=== PATIENT | female | born 1965 | race Caucasian/White ===

== ENCOUNTER 2022-05-13 01:10 | Day surgery (SDC) | payer OTHER, SELFPAY ==
[2022-04-19 12:14] VITALS: BMI 33.3
--- NOTE | 2022-04-19 12:19 | PC.NURSE ---
Addendum entered by Soheila Caba RN 05/06/22 12:22: PT TO ARRIVE AT 0830 ON 05/13/22 FOR SURGERY AT 0930. Original Note: Report to the Outpatient Waiting Room, entrance under the green pavilion located off [facility], at time ___929____ on date __04/29/22 . Planned Procedure Time: ___1030 . Time changes happen often and if your time is changed the preop area will call you the afternoon before. - You and your visitor will be asked to self-screen and do not enter if you have any COVID symptoms. - We encourage only one visitor and NO visitors under age 16 are allowed at this time. Your visitor will receive communication by the phone number that is given day of service. - The patient visitor is requested to social distance or may leave the building when not with patient due to restrictions. - A mask is required within the hospital. -MAY HAVE LIGHT BREAKFAST Take the following medications with a SIP of water the morning of surgery: ____REG HOME MEDS Medications to discontinue per physician Date to take last dose Please no make-up, nail yakut, hairspray, perfume, deodorant, or body powder the day of surgery. No jewelry (including any body piercings) or valuables the day of surgery, leave them at home. Please take a shower or bath the night before, or the morning of, surgery with an antibacterial soap. Wear comfortable, loose fitting clothing. Children are encouraged to wear pajamas. - Jewelry must be removed prior to entering the operating room. Rings and piercings that are not removed may be cut off. - The hospital will not accept responsibility for valuables. - Please leave all valuables, including medications, at home the day of surgery. If you are going home after surgery you may drive yourself, but a line haul driver is encouraged - NO public transportation without another adult. - We recommend that an adult stay with you for 24 hours following discharge. - We also recommend that you do not drive, make important decision, drink alcoholic beverages, or take any drugs that were not prescribed by your health care provider for at least 24 hours after your discharge time. For Pediatric surgeries, we recommend two adults accompany the child home. Follow any additional instructions given to you from your surgeon. If you or anyone in your household have experienced Covid symptoms in the past week, please notify your surgeon or the nurse liaison at the phone number below for possible testing. Telephone instructions given to ____PT and asked if any additional questions and then verbalized understanding. Patient advised to call surgeon office or pre surgery nurse liaison [phone] if any additional questions.
--- NOTE | 2022-05-06 12:22 | PC.NURSE ---
Pt states no changes in health history or medications since initial interview. New pre-op instructions reviewed with pt. Pt denies further questions at this time.
[2022-05-13] VITALS (8 sets, daily range): BP systolic 100–119; BP diastolic 68–77; PULSE 55–69; RESP 16; TEMP 37.1; O2SAT 95–100
--- NOTE | 2022-05-13 07:16 | WPDHPUPDATE1 ---
History and Physical Update Update Date/Time: 05/13/22 07:16 History and Physical has been reviewed, including an updated exam of the patient. There are NO changes in the patient's condition. Risks, benefits, and alternatives have been discussed and questions answered. Patient agrees to proceed with procedure.
[2022-05-13] MEDS: LIDO 2%/EPINEPHRINE 1:100,000 50 ML VIAL 10 ML INFILTRATE (07:29)
[2022-05-13] MEDS: BACITRACIN OINTMENT 15 GM TUBE 1 APPLIC TOPICAL (08:19)
--- NOTE | 2022-05-13 08:56 | W.PM.PROC2 ---
Procedure Note - Detailed Date of Procedure 05/13/22 Pre-op Diagnosis Basal Ca Carcinoma Right Lower Anterior Pretibia Post-op Diagnosis Same Procedure Performed 1.2 cm excision of basal cell carcinoma of the right lower anterior pretibia with frozen section and intermediate repair 3 cm Surgeon Bautista Mathew MD Anesthesia Local Indications Biopsy Description of Procedure The patient's right lower anterior leg site was marked in the holding area with her consent. She was taken to the operating room where she was placed supine on the operating table. The right lower extremity was prepped and draped in usual fashion. A marking was made for the incision and axis and locally infiltrated with 2% lidocaine with epinephrine. The incision was made as marked extending into the subcutaneous tissue. The specimen was taken off as a circular ellipse the most superior aspect was marked for 12 o'clock and the lesion was sent to pathology for frozen section. The pathologist reported the margins were free. The wound was closed with undermining approximately 1 cm on all sides and placement intradermal 3-0 Vicryl sutures to approximate the wound margins. The skin was closed with a running 5 0 nylon and a small standing cone was removed from 1 and . A small bandage with Coban wrap was applied. The patient is discharged with instructions in wound care and follow-up. A prescription for cephalexin 500 mg p.o. t.i.d. 15. was ordered and hydrocodone 5/325. Tourniquet Time 0 Drains No Packing No Pathology Yes Complications No immediate complications Condition Stable Disposition Same day
== END 2022-05-13 09:00 | disposition home or self-care (01) ==
PROVIDERS: PCP Internal Medicine; Visit Provider Plastic Surgery
PROC: (CPT 11602; principal; 2022-05-13 07:30)
DX: C44.712 Basal cell carcinoma of skin of right lower limb, including hip (principal)
CPT/HCPCS: 11602; 12032; 88305; 88331; A9270

== ENCOUNTER 2023-03-25 01:26 | Day surgery (SDC) | payer OTHER, SELFPAY ==
[2023-03-15 13:36] VITALS: BMI 35.0
[2023-03-25 12:25] VITALS: BP 115/71; PULSE 61; RESP 18; TEMP 36.3; O2SAT 100; BMI 35.0
[2023-03-25] MEDS: LACTATED RINGERS 1,000 ML 150 ML IV CONT (12:46)
--- NOTE | 2023-03-25 12:55 | PM.HPGS ---
History of Present Illness History of Present Illness Consent: Risks, benefits, and alternatives have been discussed and questions answered. Patient agrees to proceed with procedure. Chief complaint: family hx of colon polyps Narrative: Karla Stock is a 57 year old female Referred for colon cancer screening. She has a family history of colon cancer. Review of Systems Review of Systems: All systems reviewed & are unremarkable except as noted in HPI and below PMFSH Past Medical History Medical History Depression History of vaginal delivery x 1 HPV (human papilloma virus) infection Hypertension Memory loss Normal colonoscopy Prediabetes Surgical History Surgical History History of gastric surgery Gastric sleeve History of tonsillectomy and adenoidectomy [place] teeth removed Family History Family History Mother Hypertension Father Hypertension High cholesterol Colon cancer at age 82 (11/05/22) from colon cancer Patient's father is Grandparent Breast cancer Cervical cancer Other Alzheimer disease Social History Social History Smoking packs per day: 1 Smoking cigarettes per day: 20.0 Years smoked: 30 Smoking pack-years: 30.00 Smoking status: Former smoker Tobacco type: cigarettes Second hand tobacco smoke exposure: No Smoking end date: 06/27/15 Alcohol intake: current Drinks per week: 2 Substance use: never Substance use type: does not use Lack of Transportation: No Lack of Food: Never True Current Housing: I Have Housing Concerned About Future Housing: No Difficulty Paying Gas/Electric Bills: No Difficulty Paying for Meds: No Currently Unemployed: No Education: Bachelor's Degree Difficulty w/ Childcare or Family Care: No Living arrangements: with family Occupation/Education: retired Gender identity (if verbalized by the patient): Female Sexual Orientation (if Verbalized by the Patient): Straight or Heterosexual Spiritual care concerns: No Meds Home Medications and Allergies Home Medications Medication Instructions Recorded Confirmed Type biotin 1 mg capsule 1 mg PO DAILY 08/06/19 03/25/23 History calcium carbonate 600 mg calcium 600 mg PO DAILY 08/06/19 03/25/23 History (1,500 mg) tablet (Calcium) cholecalciferol (vitamin D3) 100 50 mcg PO DAILY 08/06/19 03/25/23 History mcg (4,000 unit) capsule multivitamin 1 tablet PO DAILY 08/06/19 03/25/23 History omega-3 fatty acids 1,000 mg 1,000 mg PO DAILY 08/06/19 03/25/23 History capsule (Fish Oil Concentrate) BM-eaqbmjxslzi-qkxtzd ox-Zn ER 500 500 tablet PO DAILY 05/13/22 03/25/23 History mcg-750 mg-1.5 mg-25 mg tablet,ER lisinopril 20 mg tablet 20 mg PO DAILY #90 tabs 08/26/22 03/25/23 Rx Allergies Allergy/AdvReac Type Severity Reaction Status Date / Time No Known Allergies Allergy Verified 03/25/23 12:33 Vital Signs Vital Signs - 24 hr 03/25/23 12:25 Temperature 36.3 C L Pulse Rate 61 Respiratory Rate 18 Blood Pressure 115/71 Pulse Oximetry 100 Oxygen Delivery Room Air Exam Resp: Auscultation: clear to auscultation bilaterally Cardio: Rate: regular rate Rhythm: regular rhythm GI: GI Palp: Yes Soft to palpation and No Tenderness to palpation present (GI) Assessment and Plan Assessment and plan (1) Colon cancer screening: Code(s): Z12.11 - Encounter for screening for malignant neoplasm of colon Status: Acute Assessment and Plan: Colonoscopy with possible biopsy or polypectomy or cautery or injection of substances.
--- NOTE | 2023-03-25 12:57 | WPDANESEPPF ---
Anes - Initial Pre Proc Eval Procedure: Operation Date: 03/25/23 13:45 Proposed Procedures p Colonoscopy - Donal Delcid MD Date/Time: 03/25/23 12:57 Surgeon: Donal Delcid MD Pre Op Diagnosis: family hx of colon polyps Patient Data Age: 57 Gender: F Height: 1.65 m Weight: 95.6 kg Last Vital Signs Temp 97.4 F L 03/25/23 12:25 Pulse 61 03/25/23 12:25 Resp 18 03/25/23 12:25 BP 115/71 03/25/23 12:25 Pulse Ox 100 03/25/23 12:25 O2 Del Method Room Air 03/25/23 12:25 Allergies Allergy/AdvReac Type Severity Reaction Status Date / Time No Known Allergies Allergy Verified 03/25/23 12:33 Home Medications Medication Instructions Recorded Confirmed Type biotin 1 mg capsule 1 mg PO DAILY 08/06/19 03/25/23 History calcium carbonate 600 mg calcium 600 mg PO DAILY 08/06/19 03/25/23 History (1,500 mg) tablet (Calcium) cholecalciferol (vitamin D3) 100 50 mcg PO DAILY 08/06/19 03/25/23 History mcg (4,000 unit) capsule multivitamin 1 tablet PO DAILY 08/06/19 03/25/23 History omega-3 fatty acids 1,000 mg 1,000 mg PO DAILY 08/06/19 03/25/23 History capsule (Fish Oil Concentrate) LV-kdfnsfoffrg-zptgre ox-Zn ER 500 500 tablet PO DAILY 05/13/22 03/25/23 History mcg-750 mg-1.5 mg-25 mg tablet,ER lisinopril 20 mg tablet 20 mg PO DAILY #90 tabs 08/26/22 03/25/23 Rx Patient hx anesthesia problems: none Family hx anesthesia problems: none Results Review: All pre-operative results and documents have been reviewed as part of the pre-operative evaluation. [facility] Past Medical History Medical History Depression History of vaginal delivery x 1 HPV (human papilloma virus) infection Hypertension Memory loss Normal colonoscopy Prediabetes Surgical History Surgical History History of gastric surgery Gastric sleeve History of tonsillectomy and adenoidectomy [place] teeth removed Family History Family History Mother Hypertension Father Hypertension High cholesterol Colon cancer at age 82 (11/05/22) from colon cancer Patient's father is Grandparent Breast cancer Cervical cancer Other Alzheimer disease Social History Social History Smoking packs per day: 1 Smoking cigarettes per day: 20.0 Years smoked: 30 Smoking pack-years: 30.00 Smoking status: Former smoker Tobacco type: cigarettes Second hand tobacco smoke exposure: No Smoking end date: 06/27/15 Alcohol intake: current Drinks per week: 2 Substance use: never Substance use type: does not use Lack of Transportation: No Lack of Food: Never True Current Housing: I Have Housing Concerned About Future Housing: No Difficulty Paying Gas/Electric Bills: No Difficulty Paying for Meds: No Currently Unemployed: No Education: Bachelor's Degree Difficulty w/ Childcare or Family Care: No Living arrangements: with family Occupation/Education: retired Gender identity (if verbalized by the patient): Female Sexual Orientation (if Verbalized by the Patient): Straight or Heterosexual Spiritual care concerns: No Anes - Eval Final PreProcedure Day of Procedure 03/25/23 12:57 Patient weight: obese Heart: regular rate and rhythm Lungs: clear to auscultation Airway: Mallampati scale class II Neurological: alert and oriented Last oral intake: >/= 8 hours ASA classification: II Emergent: no Anesthetic plan: proceed Anesthesia type and monitoring: general GIVS and standard monitoring Results Review: All pre-operative results and documents have been reviewed as part of the pre-operative evaluation. Informed Consent: The patient's anesthetic plan and its attendant risks and benefits were discussed with the patient/family/POABronwyn Garrido
[2023-03-25 13:36] VITALS: BP 101/57; PULSE 59; RESP 17; O2SAT 100
[2023-03-25 13:46] VITALS: BP 106/74; PULSE 59; RESP 17; O2SAT 100
[2023-03-25 13:56] VITALS: BP 122/73; PULSE 60; RESP 20; O2SAT 100
== END 2023-03-25 14:03 | disposition home or self-care (01) ==
PROVIDERS: PCP Internal Medicine; Visit Provider Internal Medicine Gastroenterology
PROC: 0DJD8ZZ Inspection of Lower Intestinal Tract, Via Natural or Artificial Opening Endoscopic (ICD-10-PCS; CPT 45378; principal; 2023-03-25 13:45)
DX: Z12.11 Encounter for screening for malignant neoplasm of colon (principal); Z80.0 Family history of malignant neoplasm of digestive organs; I10 Essential (primary) hypertension; Z87.891 Personal history of nicotine dependence; E66.9 Obesity, unspecified; Z68.35 Body mass index [BMI] 35.0-35.9, adult
CPT/HCPCS: 45378; J2704; J7120

== ENCOUNTER 2023-05-15 14:24 | Emergency (ER) | payer OTHER, SELFPAY ==
--- NOTE | ~2023-05-15 | XR_ITS ---
EXAMINATION: XR chest 2V Exam Date/Time: 05/15/2023 14:50 CONTRACT MANAGEMENT SPECIALIST HISTORY: CHEST DISCOMFORT. Comparison: 09/01/2015. RESULT: Lines, tubes, and devices: None. Lungs and pleura: Clear. Cardiomediastinal silhouette: Stable. Other: No acute osseous or upper abdominal finding. IMPRESSION: No acute cardiopulmonary process. Reviewed, dictated and finalized at location K. RACT MANAGEMENT SPECIALIST
[2023-05-15 14:30] VITALS: BP 115/64; PULSE 83; RESP 20; TEMP 36.8; O2SAT 98
--- NOTE | 2023-05-15 14:32 | ED.CHESTPAIN ---
HPI - Chest Pain General Chief Complaint: Chest Pain Stated Complaint: chest discomfort Time Seen by Provider: 05/15/23 14:39 Mode of arrival: ambulatory Limitations: no limitations History of Present Illness HPI narrative: 57-year-old female presents with concern for chest pain for 1 month. She reports that is worsened over the last couple of days. She reports it is across the front of her chest on the left and the right. She reports she has worsening pain with stress. She denies worsening pain with exertion or activity. She denies any shortness of breath, cough. She denies recent sick symptoms. Reports about a month ago she started feeling tired. She denies fever, body aches, chills, sweats. She has not taken any medications for her symptoms. Reports she has been experiencing lot of stress MD complaint: chest pain Related Data Home Medications Medication Instructions Recorded Confirmed biotin 1 mg capsule 1 mg PO DAILY 08/06/19 03/25/23 calcium carbonate 600 mg calcium 600 mg PO DAILY 08/06/19 03/25/23 (1,500 mg) tablet (Calcium) cholecalciferol (vitamin D3) 100 50 mcg PO DAILY 08/06/19 03/25/23 mcg (4,000 unit) capsule multivitamin 1 tablet PO DAILY 08/06/19 03/25/23 omega-3 fatty acids 1,000 mg 1,000 mg PO DAILY 08/06/19 03/25/23 capsule (Fish Oil Concentrate) WE-aeeughwvbaq-gnpkdy ox-Zn ER 500 500 tablet PO DAILY 05/13/22 03/25/23 mcg-750 mg-1.5 mg-25 mg tablet,ER Allergies Allergy/AdvReac Type Severity Reaction Status Date / Time No Known Allergies Allergy Verified 03/25/23 12:33 Review of Systems Review of Systems: CONSTITUTIONAL: Denies malaise, chills, sweats, or fever. ENT: Denies rhinorrhea, congestion, sinus pain, otalgia or sore throat. CARDIOVASCULAR: Reports anterior left and right chest pain. Denies palpitations, or edema. RESPIRATORY: Denies cough or dyspnea. GASTROINTESTINAL: Denies nausea, vomiting SKIN: Denies rash or itching, bruising, warmth, redness. MUSCULOSKELETAL: Denies back pain, joint pain, or myalgia. NEUROLOGIC: Denies numbness, weakness, or headache. All systems reviewed & are unremarkable except as noted in HPI and below PMFSH Past Medical History Medical History Depression History of vaginal delivery x 1 HPV (human papilloma virus) infection Hypertension Memory loss Normal colonoscopy Prediabetes Surgical History Surgical History History of gastric surgery Gastric sleeve History of tonsillectomy and adenoidectomy [place] teeth removed Family History Family History Mother Hypertension Father Hypertension High cholesterol Colon cancer at age 82 (11/05/22) from colon cancer Patient's father is Grandparent Breast cancer Cervical cancer Other Alzheimer disease Social History Social History Smoking packs per day: 1 Smoking cigarettes per day: 20.0 Years smoked: 30 Smoking pack-years: 30.00 Smoking status: Former smoker Tobacco type: cigarettes Second hand tobacco smoke exposure: No Smoking end date: 06/27/15 Alcohol intake: current Drinks per week: 2 Substance use: never Substance use type: does not use Lack of Transportation: No Lack of Food: Never True Current Housing: I Have Housing Concerned About Future Housing: No Difficulty Paying Gas/Electric Bills: No Difficulty Paying for Meds: No Currently Unemployed: No Education: Bachelor's Degree Difficulty w/ Childcare or Family Care: No Living arrangements: with family Occupation/Education: retired Gender identity (if verbalized by the patient): Female Sexual Orientation (if Verbalized by the Patient): Straight or Heterosexual Spiritual care concerns: No Comments At time of signature, agr
--- NOTE | 2023-05-15 14:36 | ECG_ITS ---
Measurements Intervals [place] Rate: 82 P: 48 CO: 148 QRS: 38 QRSD: 96 T: 26 QT: 378 QTc: 444 Interpretive Statements SINUS RHYTHM NORMAL ECG NO PREVIOUS ECG AVAILABLE FOR COMPARISON Electronically Signed On 05-16-2023 8:41:54 [employer] by Santino Paz D.O.
--- NOTE | 2023-05-15 14:43 | PC.NURSE ---
Patient taken directly to room and EKG done. Show to provider.
== END 2023-05-15 15:11 | disposition home or self-care (01) ==
PROVIDERS: Emergency Provider Nurse Practitioner; PCP Internal Medicine
DX: R07.9 Chest pain, unspecified (principal); I10 Essential (primary) hypertension; Z87.891 Personal history of nicotine dependence
CPT/HCPCS: 71046; 93005; 99213; G0463

== ENCOUNTER → 2023-06-29 11:30 | Outpatient (CLI) | payer OTHER, SELFPAY ==
--- NOTE | ~2023-06-29 | XR_ITS ---
Right Knee Technique: AP and lateral views were obtained. Clinical History: Pain Findings: No fracture or dislocation is seen. Osseous alignment is anatomic. There is minimal spurrin g of the patella and intercondylar notch. Soft tissues are unremarkable. No joint effusion is seen. Impression: Minimal degenerative spurring, as above. Reviewed, dictated and finalized at location . UM REGISTRAR Impression: Minimal degenerative spurring, as above.
== END ==
PROVIDERS: PCP Internal Medicine; Visit Provider Nurse Practitioner Family
DX: M25.561 Pain in right knee (principal)
CPT/HCPCS: 73560

== ENCOUNTER 2023-11-23 10:08 | Outpatient (CLI) | payer OTHER, SELFPAY ==
--- NOTE | ~2023-11-23 | US_ITS ---
EXAMINATION: US transvaginal DATE: 11/23/2023 10:33 INDICATION: Menopausal , abdominal bloating, family history of gynecologic cancer. TECHNIQUE: Multiple endovaginal sonographic images of the pelvis were obtained. COMPARISON: None. FINDINGS: Uterus: 4.8 x 2.9 x 3.4 cm. Anteverted and anteflexed uterus. Endometrial complex measures 3 mm. Right Ovary: 2.5 x 2.0 x 1.6 cm. Vascular flow is present. No adnexal mass. Left Ovary: Not visualized. No adnexal mass. There is no free fluid in the pelvis. IMPRESSION: Left ovary not visualized during this examination. Otherwise, normal pelvic sonogram findings. Reviewed, dictated and finalized at location K. IMPRESSION: Left ovary not visualized during this examination. Otherwise, normal pelvic son ogram findings.
== END 2023-11-23 10:09 ==
LOC: MICIMG 10:08
PROVIDERS: PCP Internal Medicine; Visit Provider Obstetrics & Gynecology Gynecology
DX: Z78.0 Asymptomatic menopausal state (principal); Z80.49 Family history of malignant neoplasm of other genital organs
CPT/HCPCS: 76830

== ENCOUNTER 2025-01-07 15:22 | Outpatient (CLI) | payer OTHER, SELFPAY ==
--- NOTE | ~2025-01-07 | US_ITS ---
US pelvic complete w TV Ordering provider: Suzan Vasquez APRN History: . N95.0 - Postmenopausal bleeding . Comparison: None. Technique: Transabdominal and endovaginal ultrasound of the pelvis (Doppler ultrasound interrogation techniques used as needed for this exam.) FINDINGS: CERVIX: Normal. UTERUS: Measures 7.6x 4.6x 5.4 cm in length which is within normal limits and is anteverted. Fibroid is seen posterolaterally measuring 1.6 x 1.5 x 1.9 cm. ENDOMETRIUM: Normal in thickness measuring 4 mm. No endometrial masses, cysts or fluid. CUL DE SAC: No free fluid. RIGHT OVARY: Not visualized. LEFT OVARY: Not visualized. ADNEXA: Normal. No mass. IMPRESSION: Fibroid of the uterus. Nonvisualization of the ovaries. Otherwise, normal pelvic ultrasound. Reviewed, dictated and finalized at location A. IMPRESSION: Fibroid of the uterus. Nonvisualization of the ovaries. Otherwise, normal pelvi c ultrasound.
== END 2025-01-07 15:23 | disposition home or self-care (01) ==
PROVIDERS: PCP Internal Medicine; Visit Provider Nurse Practitioner Family
DX: D25.9 Leiomyoma of uterus, unspecified (principal)
CPT/HCPCS: 76830; 76856